=== PATIENT | male | born 1970 | race Caucasian/White ===

== ENCOUNTER 2019-02-25 15:36 | Emergency (ER) | payer OTHER ==
[2019-02-25] MEDS ORDERED: Sodium Chloride 0.9% 10 ML Syringe FLUSH PRN (15:41)
[2019-02-25] MEDS ORDERED: Lactated Ringers 1,000 ML IV SCH (15:45)
[2019-02-25] MEDS ORDERED: HYDROmorphone 0.5 MG/0.5 ML Syringe IVPUSH ONE (16:24)
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
--- NOTE | 2019-02-27 09:07 | CT ---
CT cervical spine Technique: Multiple axial sections were obtained from above C1 inferiorly to the top of T2. Reconstructed coronal and sagittal images were obtained. Comparison: No prior cervical spine imaging. Findings: Degenerative spurring noted posteriorly and anteriorly at C2-C3 through C6-C7. Mild disc space narrowing is noted throughout the cervical spine. Moderate right-sided neural foraminal stenosis noted at C3-C4. Other neural foramina are felt to be fairly well patent. No fracture is identified. No abnormal subluxation is seen. Mild degenerative change scattered within the apophyseal joints. Impression: 1. Diffuse degenerative change. 2. Nothing acute is appreciated on CT study of the cervical spine. Diagnostic code #2 I agree with preliminary report from [facility], finalized on 02/25/19, 5:31 PM Central Time
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
--- NOTE | 2019-02-27 10:29 | CR ---
Left knee: Four views of the left knee were obtained. Comparison: No prior knee exam. Spur noted at the attachment of the quadriceps tendon into the patella. Medial and lateral joint spaces are maintained in height. No joint effusion is seen. No acute fracture or other bony abnormality is seen. Impression: 1. Nothing acute is appreciated on four-view left knee exam. Diagnostic code #2
--- NOTE | 2019-02-27 10:29 | CT ---
Head CT Technique: Multiple axial sections through the brain were obtained. Intravenous contrast was not utilized. Comparison: No prior intracranial imaging. Findings: Ventricles along with basal cisterns and sulci over the convexities are within normal limits for the patient's age. No abnormal parenchymal densities are seen. No evidence of intracranial hemorrhage. No midline shift or mass effect is seen. Mucosal thickening is noted within both maxillary sinuses. Retention cyst measuring about 1.7 cm is seen within the left maxillary sinus. Mucosal thickening is noted within the right frontal sinus extending into the anterior right ethmoid sinus. No acute calvarial abnormality is appreciated. Impression: 1. Chronic appearing sinus findings as noted above. 2. No acute intracranial abnormality is appreciated. Diagnostic code #2 I agree with preliminary report from [facility], finalized on 02/25/19, 5:26 PM Central Time
== END 2019-02-25 18:15 | disposition home or self-care (01) ==
LOC: JD.ED 15:36
DX: S27.321A Contusion of lung, unilateral, initial encounter (principal); S46.911A Strain of unspecified muscle, fascia and tendon at shoulder and upper arm level, right arm, initial encounter; S80.212A Abrasion, left knee, initial encounter; S00.31XA Abrasion of nose, initial encounter; V29.9XXA Motorcycle rider (driver) (passenger) injured in unspecified traffic accident, initial encounter
CPT/HCPCS: 36415; 70450; 71260; 72125; 73564; 74177; 80053; 85025; 96361; 96374; 99285; G0480; J1170; J7120; 99284